=== PATIENT | male | born 1985 | race Caucasian/White ===

== ENCOUNTER 2017-05-31 01:34 | Day surgery (SDC) | payer BC ==
[~2017-05-31] VITALS: Ht 172.7 cm; Wt 99.8 kg
[2017-05-31] VITALS (8 sets, daily range): BP systolic 122–135; BP diastolic 76–98
[~2017-05-31 01:34] MED LIST: CETI10TA24 PO; CIPR500T86 PO; LORA10TA75 PO; OMEP40CA6 PO; TRAM50TA PO
[2017-05-31] MEDS ORDERED: LEVAQUIN 100 ML IV ONE ×2 (04:58→07:00)
[2017-05-31] MEDS ORDERED: LACTATED RINGERS 1,000 ML ONE (04:58)
[2017-05-31] MEDS ORDERED: LASIX ONE (04:58)
[2017-05-31] MEDS ORDERED: DECADRON ONE (06:25)
[2017-05-31] MEDS ORDERED: ZOFRAN ONE (06:25)
[2017-05-31] MEDS ORDERED: TORADOL ONE (06:25)
[2017-05-31] MEDS ORDERED: VERSED ONE (06:25)
[2017-05-31] MEDS ORDERED: SUBLIMAZE ONE (06:25)
[2017-05-31] MEDS ORDERED: DIPRIVAN IV ONE (06:25)
[2017-05-31] MEDS ORDERED: XYLOCAINE ONE (06:25)
[2017-05-31] MEDS ORDERED: SUBLIMAZE IV PRN (07:00)
[2017-05-31] MEDS ORDERED: LACTATED RINGERS 1,000 ML IV ONE (07:00)
[2017-05-31] MEDS ORDERED: LASIX IV ONE (07:00)
[2017-05-31] MEDS ORDERED: DILAUDID IV PRN (07:00)
[2017-05-31] MEDS ORDERED: LASIX IV SCH (10:00)
[2017-05-31] MEDS ORDERED: LACTATED RINGERS 1,000 ML IV SCH (10:00)
[2017-05-31] MEDS ORDERED: NORCO 7.5MG PO PRN (10:00)
[2017-05-31] MEDS ORDERED: TAMS0.4C2 PO (10:15)
[2017-05-31] MEDS ORDERED: ACET1TAB34 PO (10:15)
--- NOTE | 2017-05-31 10:20 | OPH ---
DATE OF SURGERY: 05/31/2017 PREOPERATIVE DIAGNOSIS: Left renal calculus. FINAL DIAGNOSIS: Left renal calculus. PROCEDURES: Left ESWL. DESCRIPTION OF PROCEDURE: The patient was brought to the lithotripsy room, was put in supine position on the lithotripsy table. The preop KUB and the ultrasound revealed the stone in the left kidney with the presence of indwelling stent. The stone measures 5.9 mm in diameter in the lower pole. No evidence of hydronephrosis noted. After the patient was given an LMA general anesthesia and after localization of the stone with the use of the fluoroscopy and ultrasound, a left ESWL was then performed using a Dornier Compact Delta II Lithotripter. A total of 1500 shockwaves were delivered to the stones in the left kidney under ultrasound guidance. After fragmentation of the stone as noted in the ultrasound, the procedure was terminated. The patient was awakened, was transferred to the recovery room in stable condition. Coy Henson MD DR: SULAIMAN/nigel JOB# [id number]
--- NOTE | 2017-05-31 12:44 | DIREP ---
PROCEDURE:XRAY ABDOMEN SINGLE VW COMPARISON:[facility], CT, CT ABD/PELVIS W/O, 05/23/2017, 08:57 AM. INDICATIONS:LEFT URETERAL STENT FINDINGS: BOWEL GAS PATTERN:Eoza-qs-cinlqeui mixed stool and gas throughout the colon. No dilated loops of small bowel identified. CALCIFICATIONS:Tiny calcific densities project over the right renal shadow. There are additional calcific densities projecting over the expected location of the interpolar region to lower pole left kidney. Potential additional calcific density within the superior pole of the left kidney. A left ureteral stent is in place. No appreciable calcifications along the course of the stent. No definite calcifications along the expected course of the right ureter. LUNG BASES:Not adequately imaged. BONES:No acute abnormality. Degenerative changes of the lower lumbar spine. CONCLUSION: 1. Nonspecific nonobstructive bowel gas pattern. 2. Bilateral nephrolithiasis. Left ureteral stent in place. No definite calcifications along the course of the left ureteral stent or expected course of the right ureter. Dictated by: Tristen Shea M.D. On 05/31/2017 at 12:40 PM
[2017-06-03] MEDS ORDERED: LACTATED RINGERS 1,000 ML IV SCH (09:00)
[2017-06-03] MEDS ORDERED: NORCO 7.5MG PO PRN (09:00)
== END 2017-05-31 10:35 | disposition home or self-care (01) | DRG 694 ==
LOC: SURG 01:34
PROVIDERS: ATTEND Urology
DX: N20.0 Calculus of kidney (principal); E66.9 Obesity, unspecified; Z68.33 Body mass index [BMI] 33.0-33.9, adult; J45.909 Unspecified asthma, uncomplicated; Z98.890 Other specified postprocedural states; Z79.899 Other long term (current) drug therapy; Z88.8 Allergy status to other drugs, medicaments and biological substances
CPT/HCPCS: 50590; 74000; J1100; J1885; J1956; J2250; J2405; J3010; J3490 ×2; J7120; J1940

== ENCOUNTER 2017-06-03 00:15 | Day surgery (SDC) | payer BC ==
[~2017-06-03] VITALS: Ht 172.7 cm; Wt 99.8 kg
[2017-06-03] VITALS (9 sets, daily range): BP systolic 123–152; BP diastolic 55–88
[~2017-06-03 00:15] MED LIST changes: +ACET1TAB34 PO; +TAMS0.4C2 PO
[2017-06-03] MEDS ORDERED: LEVAQUIN 100 ML IV ONE ×2 (04:51→06:00)
[2017-06-03] MEDS ORDERED: LACTATED RINGERS 1,000 ML ONE ×2 (04:51→08:32)
[2017-06-03] MEDS ORDERED: LACTATED RINGERS 1,000 ML IV SCH (06:00)
[2017-06-03] MEDS ORDERED: CETI10TA24 PO (06:06)
[2017-06-03] MEDS ORDERED: VERSED ONE (06:48)
[2017-06-03] MEDS ORDERED: DECADRON ONE (06:48)
[2017-06-03] MEDS ORDERED: ZOFRAN ONE (06:48)
[2017-06-03] MEDS ORDERED: XYLOCAINE ONE (06:48)
[2017-06-03] MEDS ORDERED: TORADOL ONE (06:48)
[2017-06-03] MEDS ORDERED: SUBLIMAZE ONE (06:49)
[2017-06-03] MEDS ORDERED: DIPRIVAN IV ONE (06:49)
[2017-06-03] MEDS ORDERED: SODIUM CHLORIDE IR ONE (07:23)
[2017-06-03] MEDS ORDERED: NS 3000ML IRR IR ONE (07:24)
[2017-06-03] MEDS ORDERED: ZOFRAN IV PRN (09:00)
[2017-06-03] MEDS ORDERED: BENADRYL IV PRN (09:00)
[2017-06-03] MEDS ORDERED: VENTOLIN IH PRN (09:00)
[2017-06-03] MEDS ORDERED: DILAUDID IV PRN (09:00)
[2017-06-03] MEDS ORDERED: PHENERGAN IV PRN (09:00)
--- NOTE | 2017-06-03 09:19 | OPH ---
DATE OF SURGERY: 06/03/2017 PREOPERATIVE DIAGNOSIS: Left renal calculus post-ESWL with an indwelling stent. FINAL DIAGNOSIS: Left renal calculus post-ESWL with an indwelling stent. PROCEDURES: Cystoscopy, removal of stent and left ureteroscopy. DESCRIPTION OF PROCEDURE: The patient was brought to the cystoscopy room and was put in supine position on the cystoscopy table. After the patient was given a satisfactory and adequate LMA general anesthesia, the patient was placed in the lithotomy position. The genitalia was then prepped and draped aseptically in the usual manner. First, a 22-Iranian cystoscope was inserted per urethra up to the bladder. With the use of the right angle lens, the bladder was visualized, there was some congestion noted and there is a presence of the stent in the left orifice and this was removed and replaced with a guidewire. After this was done, the cystoscope was removed and then a 7-Iranian semirigid ureteroscope was inserted from the left orifice all the way to the upper ureter and there was no evidence of residual stones noted. The ureteroscope was then removed including the Glidewire in the left ureter and then the cystoscope was reinserted to the bladder. The bladder was emptied with fluid. Procedure was terminated. Instrument was removed. The patient was awakened, was transferred to the recovery room in stable condition. Coy Henson MD DR: SULAIMAN/nigel JOB# [id number]
--- NOTE | 2017-06-03 09:30 | DIREP ---
PROCEDURE:XRAY FLUOROSCOPY COMPARISON:None. INDICATIONS:stent removal, 9 IMAGES, 20.50 mGy, 46.1 SECONDS FLUORO TIME USED FINDINGS: Fluoroscopy provided for surgical procedure. 46 seconds of fluoroscopy was utilized. Eight digital spot films are submitted. These reveal left ureteral stent removal. CONCLUSION:Fluoroscopy for urological procedure. Dictated by: Julius Mann MD on 06/03/2017 at 09:23 AM
== END 2017-06-03 09:20 | disposition home or self-care (01) | DRG 700 ==
LOC: SURG 00:15
PROVIDERS: ATTEND Urology
DX: Z46.6 Encounter for fitting and adjustment of urinary device (principal); Z87.442 Personal history of urinary calculi; N32.89 Other specified disorders of bladder; J45.909 Unspecified asthma, uncomplicated; E66.9 Obesity, unspecified; Z68.33 Body mass index [BMI] 33.0-33.9, adult; Z88.8 Allergy status to other drugs, medicaments and biological substances; Z79.899 Other long term (current) drug therapy
CPT/HCPCS: 52351; 76000; J1100; J1885; J1956; J2250; J2405; J3010; J3490 ×2; J7030 ×2; J7120 ×2; C1769; C1894

== ENCOUNTER → 2020-02-18 | Outpatient (CLI) ==
[~2020-02-18] MED LIST changes: -CETI10TA24 PO; +CETI10TA77 PO; +OMEP40CA41 PO; -OMEP40CA6 PO
[2020-02-18 09:10] LABS: EOSINOPHIL # 0.1 10^3/uL (0.0-0.2); EOSINOPHIL % 1.8 % (0.0-5.0); LYMPHOCYTES # 0.97 10^3/uL1 (1.0-4.8); LYMPHOCYTES % 17.6 % (24.0-44.0); MEAN CORP HGB 32.7 pg (26-34); MONOCYTES # 0.5 10^3/uL (0.3-0.8); MONOCYTES % 9.3 % (5.0-12.0); NEUTROPHIL # 3.9 10^3/uL (1.8-7.7); NEUTROPHILS % 70.9 % (41.0-85.0); RED CELL DISTRIBUTION WIDTH 12.2 % (11.5-14.5)
[2020-02-18 09:34] LABS: CALCIUM 8.5 mg/dL (8.4-10.5); CARBON DIOXIDE 25.8 mmol/L (20.0-32)
== END | disposition home or self-care (01) ==
LOC: LAB 08:48
PROVIDERS: ATTEND Nurse Practitioner Family
DX: E78.1 Pure hyperglyceridemia (principal); R21 Rash and other nonspecific skin eruption; I10 Essential (primary) hypertension
CPT/HCPCS: 36415; 80053; 80061; 83036; 84439; 84443; 85025

== ENCOUNTER → 2020-11-03 | Outpatient (CLI) | payer OTHER ==
[2020-11-03 10:28] LABS: MEAN CORP HGB 32.1 pg (26-34)
[2020-11-03 10:52] LABS: CALCIUM 9.4 mg/dL (8.4-10.5); CARBON DIOXIDE 25.8 mmol/L (20.0-32)
[2020-11-04 07:21] LABS: TESTOSTERONE, TOTAL 255 ng/dL (264-916)
== END | disposition home or self-care (01) ==
LOC: LAB 10:16
PROVIDERS: ATTEND Nurse Practitioner Family
DX: R53.83 Other fatigue (principal); E78.1 Pure hyperglyceridemia
CPT/HCPCS: 36415; 80053; 80061; 82607; 82746; 84402; 84403; 85027